=== PATIENT | female | born 1955 | race Caucasian/White ===

== ENCOUNTER → 2022-03-27 | Outpatient (CLI) | payer OTHER, SELFPAY | END | disposition home or self-care (01) | LOC: LAB 16:39 | PROVIDERS: PCP Nurse Practitioner Primary Care; Referring Provider Obstetrics & Gynecology; Visit Provider Obstetrics & Gynecology | DX: Z01.818 Encounter for other preprocedural examination (principal) | CPT/HCPCS: 36415; 80048; 85027 ==

== ENCOUNTER 2022-04-02 10:28 | Day surgery (SDC) | payer OTHER, SELFPAY ==
--- NOTE | 2022-03-17 10:08 | PCM.HP.BLA ---
History and Physical Date of Admission: 04/02/22 HPI: The patient is a 66 year old female presenting for pre-operative visit. She is scheduled for Hysteroscopy D&C with polyp resection, for thickened endometrium on 04/02/22. Procedure discussed along with risks, benefits and complications. Other alternatives discussed for management. Consent form signed? Yes. ? ? PAST MEDICAL HISTORY PAST MEDICAL HISTORY Diagnosis Date ? Essential hypertension ? ? ? PAST SURGICAL HISTORY PAST SURGICAL HISTORY Procedure Laterality Date ? TONSILLECTOMY & ADENOIDECTOMY <AGE 10 ? CURRENT MEDICATIONS Current Outpatient Medications Medication Sig Dispense Refill ? LORazepam (ATIVAN) 0.5 mg Take 0.25 mg by mouth. ? ? ? ondansetron orally disintegrating (ZOFRAN ODT) 4 mg disintegrating tablet TAKE 1 TABLET BY MOUTH 3 TIMES A DAY FOR 5 DAYS ? ? ? lisinopril (ZESTRIL, PRINIVIL) 20 mg tablet Take 20 mg by mouth twice daily. ? ? ? omeprazole (PRILOSEC) 20 mg capsule Take 20 mg by mouth once daily. ? ? ? Magnesium Oxide 250 mg magnesium tab Take 250 mg by mouth. ? ? ? hydroCHLOROthiazide (HYDRODIURIL, ESIDRIX) 25 mg tablet ? METOPROLOL TARTRATE (LOPRESSOR ORAL) Take by mouth. ? ? ? albuterol HFA (PROVENTIL HFA, VENTOLIN HFA) 90 mcg/actuation inhaler Inhale 2 Puffs as instructed every 6 hours as needed for Wheezing/Shortness of Breath. (Patient not taking: Reported on 01/29/2022 ) 1 Inhaler 2 ? benzonatate (TESSALON PERLES) 100 mg capsule Take 1 capsule by mouth three times daily as needed for Cough. (Patient not taking: Reported on 06/21/2020 ) 20 capsule 0 ? No current facility-administered medications for this visit. ? ? ALLERGIES: Patient has no known allergies. ? PERSONAL HISTORY: SOCIAL HISTORY Social History ? Tobacco Use ? Smoking status: Former Smoker ? Smokeless tobacco: Never Used Vaping Use ? Vaping Use: Never used Substance Use Topics ? Alcohol use: Never ? Drug use: Never ? FAMILY HISTORY: FAMILY HISTORY FAMILY HISTORY Problem Relation Age of Onset ? Heart Brother ? ? afib ? Cancer Brother ? ? Heart Brother ? ? afib ? Heart Brother ? ? afib ? Cancer Brother ? ? ? REVIEW OF SYMPTOMS: GENERAL: denies fevers or chills ENDOCRINOLOGY: has not been on steroids Cardiology : denies palpitations or chest pain Respiratory: some cough recently Hematology: denies history of prolonged bleeding or easy bruising or VTE Allergy: Denies history of personal or family history of allergy to anesthesia ? ? PHYSICAL EXAMINATION: ? VITALS: Blood pressure 118/76, pulse 72, resp. rate 14, height 5' 6 (1.676 m), weight 243 lb (110.2 kg). ? GENERAL: The patient is well nourished, well hydrated in no acute distress. , The patient is oriented to time, place, and person. NECK: Supple. No lynphadenopathy, normal thyroid, no thyromegaly. LUNGS: wheezing bilaterally HEART: Regular rate and rhythm, Normal heart sounds and No murmurs or gallops ? IMPRESSION: thickened endometrium ? PLAN: The risks/benefits/alternatives and personal involved for the planned hysteroscopy D&C with polyp resection were reviewed with the patient. Her questions were answered to her satisfaction and she desires to proceed. Consent was signed. I reviewed with her postop instructions and expectations. ? ? I have reviewed and updated past medical and surgical history, medications and allergies Assessment & Plan Assessment/Plan (1) Thickened endometrium:
[2022-03-27 17:11] LABS: Hematocrit 42.5 % (37-47); Hemoglobin 13.7 g/dL (12.0-15.0); Mean Corp Hgb Conc 32.2 g/dL (32-36); Mean Corpuscular Hgb 27.6 pg (27.0-32.0); Mean Corpuscular Volume 85.7 fL (81-99); Platelet Count 370 K/mm3 (150-450); RBC Distribution Width SD 43.8 fl (35.1-43.9); Red Blood Count 4.96 M/mm3 (4.2-5.4); White Blood Count 9.6 K/mm3 (4.4-11.0)
[2022-03-27 17:54] LABS: Anion Gap 6 (5-15); BUN 29 mg/dL (7-18); BUN/Creat Ratio 31.6 RATIO (10-20); Calcium,Total 9.5 mg/dL (8.5-10.1); Chloride 107 mmol/L (98-107); Creatinine, Serum 0.92 mg/dL (0.55-1.02); EST Glomerular Filtration Rate 65 mL/min (>60); Est Glom Filt Rate - Afr Amer 78 mL/min (>60); Glucose 88 mg/dL (74-106); Potassium 4.1 mmol/L (3.5-5.1); Sodium Level 139 mmol/L (136-145)
[2022-04-02] VITALS (7 sets, daily range): BP systolic 121–130; BP diastolic 66–79; PULSE 61–78; RESP 15–18; TEMP 36.2–36.6; O2SAT 91–100; BMI 37.1
[2022-04-02] MEDS: Lactated Ringers 1,000 ML 15 ML IV (11:13)
[2022-04-02] MEDS: Acetaminophen 500 MG Tablet 1000 MG PO (11:14)
[2022-04-02] MEDS: Ketorolac 15 MG/ML Vial IV (11:15)
--- NOTE | 2022-04-02 12:00 | EMB_PTH ---
PATIENT: HERNANDO PEDERSON LOC: [facility] [place] U#:[id number] AGE/SX: 66/F ROOM: RE04/02/[address]: Dr. Kia Roque MD : [id number] BED: DIS: 04/02/2022 SPEC #: [id number] RECD: 04/02/22 14:01 STATUS: JACOBO REYon #: [id number] BRENDON: 04/02/22 12:[address]: Kia Roque DEPT: SURGICAL PATHOLOGY RECD BY: Jemma Lozano ENTERED: 04/03/22 09:13 SP TYPE: ENDOM BX/C ANSELMO DR: DL Reilly Tissues: Endometrium, NOS Procedures: Surgery Specimen Level IV HEADER OPERATION: Endometrial curettings PRE-OP DIAGNOSIS: Thickened endometrium TISSUE SUBMITTED: Endometrial curettings MICROSCOPIC DIAGNOSIS Endometrium, curettings: Fragments of simple cystic hyperplasia without atypia. Fragments of benign myometrial tissue. AM:cristian 04/07/2022 MICROSCOPIC DESCRIPTION Slides are reviewed. GROSS DESCRIPTION Received in fixative is one container labeled with the patient's name and designated endometrial curettings. The specimen consists of multiple irregular fragments of denson soft tissue that in aggregate measure 3 x 2.5 x 0.1 cm. The specimen is totally submitted in one cassette. / SJ:cristian 04/03/2022 TC:5 CPT: 78895
--- NOTE | 2022-04-02 12:01 | OP.PCM_ITS ---
Problems Associated Problem List Diagnoses (1) Thickened endometrium: Report of Operation Date of Procedure: 04/02/22 Pre-Operative Diagnosis: thickened endometrium Post-Operative Diagnosis: same Surgery/Procedure Performed:: Hysteroscopy D&C Description of Surgical Findings:: Normal vagina, normal-appearing endocervical canal, uterine fundus with both tubal ostia identified. Appears to be thickened endometrium, no discrete polyp Surgeon: Kia Roque supervisor hard candy: None Type of Anesthesia: MAC/Supplemental/Local Anesthesiologist: Octavio Babcock Special Medications: none Specimen's removed: endometrial curetings Drains: none Estimated Blood Loss (mL): 5 Fluids Replaced: 500 Description of Procedure: The patient was taken to the OR where she was prepped and draped in dorsal lithotomy position. The weighted speculum was placed in the vagina and the anterior lip of the cervix was grasped with a single-tooth tenaculum. A paracervical block was administered with 8 cc of dilute vasopressin solution that had 20 units of vasopressin and 40 cc of injectable saline.. The cervix was dilated serially with Hegar dilators. The symphion hysteroscope was placed into the uterine cavity and the above findings were noted. Bilateral tubal ostia [were] identified. The hysteroscope was removed. The Symphion resection device was readied and inserted. A visual curettage of the uterine fundus was performed. The instruments were removed from the vagina. The specimen was handed off and sent to pathology. All sponge and needle counts were correct. Vaginal sweep was performed by me. The patient was awakened and taken to the recovery room in stable condition. Calculated hysteroscopic fluid deficit is 350 cc of normal saline Grafts/Implants Used: none Procedure Start Time: 12:19 Procedure Stop Time: 12:28 Complications none Admit VTE Documentation VTE Present on Admission: No VTE Mechan Device Prophylaxis: SCD's VTE Pharm Prophylaxis ordered?: No Reason prophylaxis not ordered:: Procedure Not Indicated
--- NOTE | 2022-04-02 12:01 | PCM.DC ---
Discharge Instructions Diet Discharge Diet: No restrictions Activity May resume sexual activity in: 2 weeks Lifting Restrictions: none Dressing / Incision Call your doctor if your incision/area has: Sudden Increased Bleeding and Foul Smelling Discharge Call your doctor if you observe: Fever of 101 or Higher and Using more than 1 pad per hour (for 2 hrs in a row) Follow Up Care Please Follow Up With: Kia Roque MD When: 2-4 weeks or as needed. Call [phone] to make an appointment or with any concerns. Test Results: Test results from this visit will be discussed in further detail at your follow-up appointment, if applicable. Discharge Plan Admission Primary Reason for Your Visit: D&C Attending Provider: Kia Roque Primary Care Provider: Raheem Irvin NP Discharge Orders/Prescriptions Prescriptions: No Action lisinopril 20 mg Tablet 20 mg PO BID RF: 0 metoprolol succinate 100 mg Tablet Extended Release 24 Hr 100 mg PO BID RF: 0 omeprazole 20 mg Capsule,Delayed Release(Dr/Ec) 20 mg PO BID RF: 0 hydrochlorothiazide 25 mg Tablet 25 mg PO DAILY RF: 0 albuterol sulfate 90 mcg/actuation Hfa Aerosol Inhaler 1 inh INHALATION Q6H PRN (Reason: Cough) RF: 0 Referrals / Follow Up: Raheem Irvin NP, INVESTIGATIVE ANALYST-C [Primary Care Provider] - Disposition Disposition (needs filled in before D/C Order can be placed): Home, Self Care
[2022-04-02] MEDS: Vasopressin 20 UNITS/ML Vial (12:17)
== END 2022-04-02 13:30 | disposition home or self-care (01) ==
LOC: SDC 10:29 → AC 10:32
PROVIDERS: PCP Nurse Practitioner Primary Care; Visit Provider Obstetrics & Gynecology
PROC: 0UB98ZZ Excision of Uterus, Via Natural or Artificial Opening Endoscopic (ICD-10-PCS; CPT 58558; principal; 2022-04-02 11:45)
DX: N85.01 Benign endometrial hyperplasia (principal); R93.89 Abnormal findings on diagnostic imaging of other specified body structures; I10 Essential (primary) hypertension; Z87.891 Personal history of nicotine dependence
CPT/HCPCS: 58558; 00952; 36415; 80048; 85027; 88305; J7120; J2405